=== PATIENT | female | born 1945 | race Caucasian/White ===

== ENCOUNTER 2025-04-23 09:55 | Outpatient (CLI) | payer MEDICARE, OTHER | END 2025-04-23 09:56 | disposition home or self-care (01) | LOC: CSHMAMMO 09:55 | PROVIDERS: ATTEND Internal Medicine Hematology & Oncology | DX: C50.512 Malignant neoplasm of lower-outer quadrant of left female breast (principal); R11.2 Nausea with vomiting, unspecified | CPT/HCPCS: 77066; G0279 ==